=== PATIENT | female | born 1990 | race Caucasian/White ===

== ENCOUNTER 2021-04-13 10:45 | Emergency (ER) | payer OTHER, SELFPAY ==
[2021-04-13 10:51] VITALS: BP 132/91; PULSE 93; RESP 18; TEMP 37.1; O2SAT 98
--- NOTE | 2021-04-13 11:40 | ED.URI ---
HPI - URI/Sore Throat General Chief Complaint: Upper Respiratory Infection Stated Complaint: cough, headache, runny nose Source: patient Mode of arrival: ambulatory Limitations: no limitations History of Present Illness HPI Narrative: 31-year-old female presents to [facility] care with complaints of cough, runny nose and headache for the past 4 days. Patient has been taking [id number] Tylenol and Advil with minimal relief. Patient son is also currently sick with cold-like symptoms. Patient has had one of her COVID vaccines. Patient denies shortness of breath, wheezing, nausea, vomiting or diarrhea. MD elicited complaint: cough and rhinorrhea Able to tolerate fluids by mouth: Yes Exacerbating factors: nothing Treatments prior to arrival: ibuprofen Related Data Home Medications Medication Instructions Recorded Confirmed No Home Medications 04/13/21 04/13/21 Allergies Allergy/AdvReac Type Severity Reaction Status Date / Time hydroxyzine [From Vistaril] Allergy Hives Verified 04/13/21 11:27 Review of Systems Constitutional: Constitutional: Denies chills, Denies fever(s) and Denies weakness ENT: Reports nasal congestion Comments: Runny nose, dry cough Respiratory: Respiratory: Denies chest congestion, Reports cough, Denies dyspnea and Denies wheezing Gastrointestinal: Gastrointestinal: Denies diarrhea, Denies nausea and Denies vomiting Integumentary/Breasts: Skin/Breast: Denies rash PMFSH Surgical History Surgical History (Updated 04/13/21 @ 11:43 by Demetrice Torrez APRN) Delivery by section Family History Family History (Updated 04/13/21 @ 11:44 by Demetrice Torrez APRN) Mother Diabetes mellitus Hypertension Father Diabetes mellitus Hypertension Hyperlipidemia Comments At time of signature, I agree with nursing past medical, surgical, social and family history. There is no relevant family history pertinent to the presenting complaint. Exam Const: General: healthy appearing and no acute distress Orientation/consciousness: patient oriented x3 HENMT: Head: normal to inspection Ears: external ears normal and TM's normal bilaterally General nose exam: Normal external nose present Face and sinus: normal facial exam and sinuses nontender Mouth: Yes moist mucous membranes Other: Mild nasal congestion noted. Neck: Neck: normal visual inspection Resp: Effort & Inspection: normal respiratory effort Auscultation: clear to auscultation bilaterally Cardio: Rate: regular rate Rhythm: regular rhythm Skin: General skin exam: normal color Rashes: no rashes Neuro: General: patient oriented x3, moves all extremities and no meningeal signs Psych: Affect: normal affect Attitude: cooperative Course Course Level of Care: Express Care Visit Vital Signs Vital signs: Vital Signs Temperature 37.1 C 04/13/21 10:51 Pulse Rate 93 04/13/21 10:51 Respiratory Rate 18 04/13/21 10:51 Blood Pressure 132/91 H 04/13/21 10:51 Pulse Oximetry 98 04/13/21 10:51 Temperature 37.1 C 04/13/21 10:51 Pulse Rate 93 04/13/21 10:51 Respiratory Rate 18 04/13/21 10:51 Blood Pressure 132/91 H 04/13/21 10:51 Pulse Oximetry 98 04/13/21 10:51 MDM - URI/Sore Throat MDM Narrative Medical decision making narrative: Patient agrees to take medication as prescribed. Patient agrees to proceed emergency room if symptoms worsen. Differential Diagnosis Differential diagnosis: Likely otitis media, sinusitis and viral infection Lab Data Lab results narrative: Negative rapid COVID Critical Care Time Critical Care Time Critical Care Time: No Discharge Plan Discharge Clinical Impression: Upper respiratory infection Qualifiers: URI type: unspecified viral URI Qualified Code(s): J06.9 - Acute upper respiratory infection, unspecified Patient Disposition: Home, Self-Care Condition: Stable Instructions: Upper Respiratory Infection (ED) Additional Instructions: Rest,
== END 2021-04-13 11:55 | disposition home or self-care (01) ==
PROVIDERS: Emergency Provider Nurse Practitioner Family
DX: J06.9 Acute upper respiratory infection, unspecified (principal); Z20.822 Contact with and (suspected) exposure to COVID-19
CPT/HCPCS: 87426; 99213; C9803; G0463

== ENCOUNTER 2021-07-18 17:31 | Emergency (ER) | payer OTHER, SELFPAY ==
[2021-07-18 17:33] VITALS: BP 161/106; PULSE 83; RESP 18; TEMP 36.9; O2SAT 98
--- NOTE | 2021-07-18 18:41 | ED.EAR ---
HPI - Ear Problem General Chief complaint: Upper Respiratory Infection Stated complaint: Cough/Ear Problem Time Seen by Provider: 07/18/21 18:00 Source: patient, RN notes reviewed and old records reviewed Mode of arrival: ambulatory Limitations: no limitations History of Present Illness HPI Narrative: 31 year old female who presents to [facility] accompanied by 3 children with complaint of right ear pain and decrease in her hearing since yesterday. Patient reports that she has had a cough and some sore throat since Saturday. Patient reports that she has been taking some Tylenol and some cough and cold medication for her symptoms, reports some sinus drainage noted also. Patient rates her ear pain as 7/10 states is throbbing. MD Complaint: ear pain and decreased hearing Location: right ear Duration: constant Severity: moderate Relieving factors: NDAIDs and other (Tylenol cough and cold medication) Discharge from ear: Reports no Associated symptoms ear: decreased hearing and rhinorrhea Treatment prior to arrival: oral analgesic Related Data Allergies Allergy/AdvReac Type Severity Reaction Status Date / Time hydroxyzine [From Vistaril] Allergy Mild Hives Verified 07/18/21 18:01 Review of Systems Review of Systems: CONSTITUTIONAL: Denies fever, chills, or sweats. EYES: Denies visual changes, redness, or discharge. ENT: Positive for rhinorrhea, congestion, sore throat, right otalgia. CARDIOVASCULAR: Denies chest pain, palpitations, or edema. RESPIRATORY:Positive cough denies dyspnea. GASTROINTESTINAL: Denies abdominal pain, nausea, vomiting, or diarrhea. GENITOURINARY: Denies dysuria or hematuria. SKIN: Denies rash or itching. MUSCULOSKELETAL: Denies back pain, joint pain, or myalgia. NEUROLOGIC: Denies headache, numbness, or weakness. PSYCHIATRIC: Denies anxiety or depression. All systems reviewed & are unremarkable except as noted in HPI and below PMFSH Past Medical History Medical History (Updated 07/19/21 @ 11:09 by Clary Hardwick NP) Ear infection Surgical History Surgical History (Updated 07/19/21 @ 11:04 by Clary Hardwick NP) Delivery by section Previous section Family History Family History Mother Diabetes mellitus Hypertension Father Diabetes mellitus Hypertension Hyperlipidemia Social History Social History (Updated 07/19/21 @ 11:07 by Clary Hardwick NP) Smoking status: Never smoker Alcohol intake: current Alcohol use details: social Substance use type: does not use Living arrangements: with family Gender identity (if verbalized by the patient): Female Comments At time of signature, agree with nursing past medical, surgical, social and family history. There is no relevant family history pertinent to the presenting complaint Exam Narrative: GENERAL: Well-appearing, well-nourished,obese and in no acute distress. HEAD: Normocephalic, atraumatic. EYES: PERRLA and EOMI. ENT: Nares red with clear rhinorrhea no epistaxis. Mucous membranes moist.Right TM red and bulging no rupture of membrane, no drainage noted, Left TM normal with no adequate light reflex, throat mild redness no lesions or any tonsil swelling, post nasal drainage present. NECK: Supple.no lymphadenopathy CHEST: Clear to auscultation. No respiratory distress.dry cough, SAO2 98% on room air HEART: Regular rate and rhythm. No murmur heard. Normal peripheral pulses. ABDOMEN: Soft, nontender, nondistended, normal active bowel sounds. EXTREMITIES: Normal range of motion. No edema. SKIN: Warm, dry, no rash. NEURO: No focal deficits. Alert and oriented x3. Course Course Level of Care: Express Care Visit Vital Signs Vital signs: Vital Signs Temperature 36.9 C 07/18/21 17:33 Pulse Rate 83 07/18/21 17:33 Respiratory Rate 18 07/18/21 17:33 Blood Pressure 161/106 H 07/18/21 17:33 Pulse Oximetry 98 07/18/21 17:33 Temperatur
== END 2021-07-18 18:45 | disposition home or self-care (01) ==
PROVIDERS: Emergency Provider Registered Nurse
DX: H65.01 Acute serous otitis media, right ear (principal)
CPT/HCPCS: 99213; G0463

== ENCOUNTER 2021-07-31 13:44 | Emergency (ER) | payer OTHER, SELFPAY | END 2021-07-31 13:58 | disposition left against medical advice (07) | PROVIDERS: Emergency Provider Nurse Practitioner | DX: Z53.21 Procedure and treatment not carried out due to patient leaving prior to being seen by health care provider (principal) | CPT/HCPCS: 99199 ==

== ENCOUNTER 2022-07-17 12:28 | Emergency (ER) | payer OTHER, SELFPAY ==
[2022-07-17 12:38] VITALS: BP 127/81; PULSE 94; RESP 20; TEMP 37.2; O2SAT 98
--- NOTE | 2022-07-17 13:17 | ED.URI ---
HPI - URI/Sore Throat General Chief Complaint: Upper Respiratory Infection Stated Complaint: sore throat Time Seen by Provider: 07/17/22 13:10 Source: patient, RN notes reviewed and old records reviewed Mode of arrival: ambulatory Limitations: no limitations History of Present Illness HPI Narrative: 32-year-old female who presents to [facility] with complaints of sore throat since 2:00 a.m. with some low grade fevers noted, denies any chills or sweats. Patient reports no sinus congestion or drainage and no cough noted. Patient has not taken any OTC medications for her symptoms. Patient denies any known ill contacts. MD elicited complaint: sore throat Onset (ago): day(s) (at 0200 today) Pain scale (0-10): 5 Able to tolerate fluids by mouth: Yes Treatments prior to arrival: none Related Data Allergies Allergy/AdvReac Type Severity Reaction Status Date / Time hydroxyzine [From Vistaril] Allergy Mild Hives Verified 07/17/22 12:47 Review of Systems Review of Systems: CONSTITUTIONAL: Reports malaise, chills, sweats, or fever. EYES: Denies visual changes, redness, or discharge. ENT: Reports no rhinorrhea, congestion, sinus pain, otalgia positive for sore throat. CARDIOVASCULAR: Denies chest pain, palpitations, or edema. RESPIRATORY: Reports no cough.? Denies dyspnea. GASTROINTESTINAL: Denies abdominal pain, nausea, vomiting, diarrhea SKIN: Denies rash or itching. MUSCULOSKELETAL: Denies myalgia. NEUROLOGIC: Denies headache. All systems reviewed & are unremarkable except as noted in HPI and below PMFSH Past Medical History Medical History (Updated 07/18/22 @ 00:01 by Mac Nascimento) Ear infection Surgical History Surgical History (Updated 07/19/21 @ 11:04 by Clary Hardwick NP) Delivery by section Previous section Family History Family History Mother Diabetes mellitus Hypertension Father Diabetes mellitus Hypertension Hyperlipidemia Social History Social History (Updated 07/19/21 @ 11:07 by Clary Hardwick NP) Smoking status: Never smoker Alcohol intake: current Alcohol use details: social Substance use type: does not use Living arrangements: with family Gender identity (if verbalized by the patient): Female Comments At time of signature, agree with nursing past medical, surgical, social and family history. There is no relevant family history pertinent to the presenting complaint Exam Narrative: GENERAL: Well-appearing, well-nourished, and in no acute distress. HEAD: Normocephalic EYES: PERRLA, conjunctivae clear ENT: Nares clear, turbinates edematous and erythematous, clear discharge. Mucous membranes moist. TM pearly hernandes with dull light reflex bilaterally; no tragal tenderness. Oropharynx erythematous without lesions. Tonsils red enlarged and without exudate, no drooling, no hoarseness, no trismus, uvula midline. NECK: Supple. lymphadenopathy CHEST: Clear to auscultation, breath sounds equal. No wheezing, rhonchi, rales, or stridor. No respiratory distress, speaks in full sentences.SAO2 98% on room air HEART: Regular rate and rhythm. No murmur heard. SKIN: Warm, dry, no rash. NEURO: Alert and oriented x3. PSYCH: Normal mood and affect Course Course Emergency Course: Patient is aware of diagnosis, understands and agrees to treatment plan.? Anticipatory guidance given.? Patient agrees to follow-up as directed and is aware of reasons to seek care at the emergency department. Portions of this record may have been created with voice recognition software Level of Care: Express Care Visit Vital Signs Vital signs: Vital Signs Temperature 37.2 C 07/17/22 12:38 Pulse Rate 94 07/17/22 12:38 Respiratory Rate 20 07/17/22 12:38 Blood Pressure 127/81 07/17/22 12:38 Pulse Oximetry 98 07/17/22 12:38 Oxygen Delivery Room Air 07/17/22 12:38 Temperature 37
== END 2022-07-17 13:33 | disposition home or self-care (01) ==
PROVIDERS: Emergency Provider Registered Nurse
DX: J02.0 Streptococcal pharyngitis (principal)
CPT/HCPCS: 87880; 99213; G0463

== ENCOUNTER 2023-09-11 17:54 | Emergency (ER) | payer OTHER, SELFPAY ==
[2023-09-11 18:01] VITALS: BP 146/98; PULSE 85; RESP 20; TEMP 36.8; O2SAT 99
--- NOTE | 2023-09-11 18:06 | PC.NURSE ---
in br to obtain ua spec.
--- NOTE | 2023-09-11 18:12 | ED.FEMALEGU ---
HPI - Female Genitourinary General Chief complaint: Urogenital-Female Stated complaint: Urinary Problem Source: patient and RN notes reviewed Mode of arrival: ambulatory Limitations: no limitations History of Present Illness HPI Narrative: 33-year-old female presented for complaint of burning with urination, frequency and urgency today. denies hematuria, nausea, vomiting, abdominal pain, flank pain, constipation, diarrhea, fevers or chills. States she had fallopian tubes removed 4 months ago, no concern for or STD. Related Data Home Medications Medication Instructions Recorded Confirmed escitalopram oxalate 20 mg tablet mg 09/11/23 labetalol 200 mg tablet mg 09/11/23 lamotrigine 100 mg tablet mg 09/11/23 lamotrigine 25 mg tablet mg 09/11/23 Allergies Allergy/AdvReac Type Severity Reaction Status Date / Time hydroxyzine [From Vistaril] Allergy Mild Hives Verified 09/11/23 17:57 Review of Systems Review of Systems: CONSTITUTIONAL: Denies body aches, fever, chills, or sweats. CARDIOVASCULAR: Denies chest pain, palpitations, or edema. RESPIRATORY: Denies cough or dyspnea. GASTROINTESTINAL: Denies abdominal pain, nausea, vomiting, or diarrhea. GENITOURINARY: Reports dysuria, frequency, urgency, denies hematuria, flank pain SKIN: Denies rash, itching, or wounds. MUSCULOSKELETAL: Denies back pain or myalgia. [facility] Past Medical History Medical History Ear infection Surgical History Surgical History Delivery by section Previous section Family History Family History Mother Diabetes mellitus Hypertension Father Diabetes mellitus Hypertension Hyperlipidemia Social History Social History Smoking status: Never smoker Alcohol intake: current Alcohol use details: social Substance use type: does not use Living arrangements: with family Gender identity (if verbalized by the patient): Female Comments At time of signature, I have reviewed and agree with nursing past medical, surgical, social and family history unless otherwise noted. Please see nursing chart for further information. There is no relevant family history pertinent to the presenting complaint Exam Narrative: GENERAL: Well-appearing and in no acute distress. ENT: Mucous membranes pink and moist. NECK: Normal AROM. Supple. CHEST: No respiratory distress. Clear to auscultation. HEART: Regular rate and rhythm. ABDOMEN: Soft, nontender, nondistended, normal active bowel sounds. No CVA tenderness SKIN: Warm, dry, no rash. NEURO: No focal deficits. Alert and oriented x3. Gait steady. PSYCH: Normal affect. Course Course Emergency Course: Patient is aware of diagnosis, understands and agrees to treatment plan. Anticipatory guidance given. Patient agrees to follow-up as directed and is aware of reasons to seek care at the emergency department. Portions of this record may have been created with voice recognition software Level of Care: Express Care Visit Vital Signs Vital signs: Vital Signs Temperature 98.3 F 09/11/23 18:01 Pulse Rate 85 09/11/23 18:01 Respiratory Rate 20 09/11/23 18:01 Blood Pressure 146/98 H 09/11/23 18:01 Pulse Oximetry 99 09/11/23 18:01 Oxygen Delivery Room Air 09/11/23 18:01 Temperature 98.3 F 09/11/23 18:01 Pulse Rate 85 09/11/23 18:01 Respiratory Rate 20 09/11/23 18:01 Blood Pressure 146/98 H 09/11/23 18:01 Pulse Oximetry 99 09/11/23 18:01 Oxygen Delivery Room Air 09/11/23 18:01 Reviewed MDM - Female Genitourinary MDM Narrative Medical decision making narrative: results of urine reviewed with patient. Discussed physical exam findings. Advised supportive measures and signs/symptoms to
== END 2023-09-11 18:24 | disposition home or self-care (01) ==
PROVIDERS: Emergency Provider Nurse Practitioner Family
DX: N39.0 Urinary tract infection, site not specified (principal); B96.20 Unspecified Escherichia coli [E. coli] as the cause of diseases classified elsewhere
CPT/HCPCS: 81003; 87077; 87086; 87088; 87186; 99213; G0463

== ENCOUNTER 2024-05-30 10:50 | Emergency (ER) | payer OTHER, SELFPAY ==
[2024-05-30 10:54] VITALS: BP 175/114; PULSE 80; RESP 18; TEMP 36.5; O2SAT 100
--- NOTE | 2024-05-30 11:38 | ED.EAR ---
HPI - Ear Problem General Chief complaint: Ear Stated complaint: Ear Pain Time Seen by Provider: 05/30/24 11:38 Source: patient and RN notes reviewed Mode of arrival: ambulatory Limitations: no limitations History of Present Illness HPI Narrative: 34-year-old female presents concern for left ear pain that started overnight. Reports history of ear problems. She denies history of recent cold symptoms. Denies fever. MD Complaint: ear pain Related Data Home Medications ?Medication ?Instructions ?Recorded ?Confirmed ?Last Taken ?Type escitalopram oxalate 20 mg tablet mg 09/11/23 Unknown History labetalol 200 mg tablet mg 09/11/23 Unknown History lamotrigine 100 mg tablet mg 09/11/23 Unknown History lamotrigine 25 mg tablet mg 09/11/23 Unknown History Allergies Allergy/AdvReac Type Severity Reaction Status Date / Time hydroxyzine (From Vistaril) Allergy Mild Hives Verified 05/30/24 11:10 Review of Systems Review of Systems: CONSTITUTIONAL: Denies malaise, chills, sweats, or fever. EYES: Denies visual changes, redness, or discharge. ENT: Denies rhinorrhea, congestion, sinus pain, and sore throat. Reports left ear pain CARDIOVASCULAR: Denies chest pain, palpitations, or edema. RESPIRATORY: Denies cough. Denies dyspnea. GASTROINTESTINAL: Denies abdominal pain, nausea, vomiting, diarrhea SKIN: Denies rash or itching. MUSCULOSKELETAL: Denies myalgia. NEUROLOGIC: Denies headache. All systems reviewed & are unremarkable except as noted in HPI and below PMFSH Past Medical History Medical History Ear infection Surgical History Surgical History Delivery by section Previous section Family History Family History Mother Diabetes mellitus Hypertension Father Diabetes mellitus Hypertension Hyperlipidemia Social History Social History Smoking status: Never smoker Alcohol intake: current Alcohol use details: social Substance use type: does not use Living arrangements: with family Gender identity (if verbalized by the patient): Female Comments At time of signature, agree with nursing past medical, surgical, social and family history. There is no relevant family history pertinent to the presenting complaint Exam Narrative: GENERAL: Well-appearing, well-nourished, and in no acute distress. HEAD: Normocephalic EYES: PERRLA, conjunctivae clear ENT: Nares clear, turbinates edematous, clear discharge. Mucous membranes moist. Right TM pearly hernandes with dull light reflex, left TM erythematous and bulging; no tragal tenderness. Oropharynx not erythematous without lesions. Tonsils not enlarged and without exudate, no drooling, no hoarseness, no trismus, uvula midline. NECK: Supple. No lymphadenopathy CHEST: Clear to auscultation, breath sounds equal. No wheezing, rhonchi, rales, or stridor. No respiratory distress, speaks in full sentences. HEART: Regular rate and rhythm. No murmur heard. SKIN: Warm, dry, no rash. NEURO: Alert and oriented x3. PSYCH: Normal mood and affect Course Course Emergency Course: Patient is aware of diagnosis, understands and agrees to treatment plan. Anticipatory guidance given. Patient agrees to follow-up as directed and is aware of reasons to seek care at the emergency department. Portions of this record may have been created with voice recognition software Level of Care: Express Care Visit Vital Signs Vital signs: Vital Signs Temperature 97.7 F 05/30/24 10:54 Pulse Rate 80 05/30/24 10:54 Respiratory Rate 18 05/30/24 10:54 Blood Pressure 175/114 H 05/30/24 10:54 Pulse Oximetry 100 05/30/24 10:54 Oxygen Delivery Room Air 05/30/24 10:54 Temperature 97.7 F 05/30/24 10:54 Pulse Rate 80 05/30/24 10:54 Respiratory Rate 18 05/30/24 10:54 Blood Pressure 175/114 H 05/30/24 10:54 Pulse Oximetry 100 05/30/24 10:54 Oxygen Delivery Room Air 05/30/24 10:54 Reviewed. Medical Decision Making MDM Narrative Medical decision making narrative: I evaluated this in the express care. History is obtained from patient who is an independent historian and physical exam was performed.? Available medical records were reviewed. ? Exam findings and relevant testing show no acute concerns or changes; patient is non-toxic appearing and is in no distress. Differential diagnosis considered: Ross virus, strep pharyngitis, allergic rhinitis, upper respiratory tract infection, sinusitis, rhinosinusitis, nasopharyngitis. viral pharyngitis, otitis media, otitis externa, otitis effusion, cerumen impaction, foreign body. Exam findings show no acute concerns or changes; patient is non-toxic appearing and is in no distress. Patient is appropriate for outpatient treatment and follow-up. ? Differential diagnosis and treatment plan were discussed with the patient. Patient agrees with discussion and after shared medical decision making agrees with plan of care. All questions were answered to the patient's satisfaction. Patient is appropriate for outpatient treatment and follow-up. Vital Signs Vital Signs: Vital Signs Temperature 97.7 F 05/30/24 10:54 Pulse Rate 80 05/30/24 10:54 Respiratory Rate 18 05/30/24 10:54 Blood Pressure 175/114 H 05/30/24 10:54 Pulse Oximetry 100 05/30/24 10:54 Oxygen Delivery Room Air 05/30/24 10:54 Temperature 97.7 F 05/30/24 10:54 Pulse Rate 80 05/30/24 10:54 Respiratory Rate 18 05/30/24 10:54 Blood Pressure 175/114 H 05/30/24 10:54 Pulse Oximetry 100 05/30/24 10:54 Oxygen Delivery Room Air 05/30/24 10:54 Critical Care Time Critical Care Time Critical Care Time: No Discharge Plan Discharge Clinical Impression: Otitis media Qualifiers: Otitis media type: serous Chronicity: acute Laterality: right Recurrence: non-recurrent Qualified Code(s): H65.01 - Acute serous otitis media, right ear Patient Disposition: Home, Self-Care Condition: Stable Instructions: Antibiotic Form, Ear Infection (ED) Additional Instructions: Take antibiotics as directed. Recommend antihistamine such as Benadryl at night time and Zyrtec or Jennifer during the day until symptoms improve Flonase nasal spray, 1 spray in each nostril once daily until symptoms improve Also, recommend symptomatic treatment includes: rest, fluids, and increase humidity of the air at home. Recommend Acetaminophen as directed on the bottle to reduce fever, pain Please schedule a follow-up visit with your personal physician for further evaluation and treatment within 3-5days. If your symptoms persist, change or worsen significantly before you can contact your personal physician then please, without delay, go to the emergency department for further evaluation. Patient Language: Icelandic Prescriptions: New amoxicillin 875 mg tablet 875 mg PO Q12H 10 Days Qty: 20 0RF fluticasone propionate [Flonase Allergy Relief] 50 mcg/actuation spray,suspension 2 spray NASAL DAILY 14 Days Qty: 15.8 0RF Rx Instructions: administer into each nostril No Action labetalol 200 mg tablet lamotrigine 25 mg tablet lamotrigine 100 mg tablet escitalopram oxalate 20 mg tablet Follow-up/Referrals: PHYSICIAN,GASKET WINDER [Primary Care Provider] - Time of Disposition: 11:42
== END 2024-05-30 11:47 | disposition home or self-care (01) ==
PROVIDERS: Emergency Provider Nurse Practitioner
DX: H65.01 Acute serous otitis media, right ear (principal)
CPT/HCPCS: 99213; G0463

== ENCOUNTER 2024-07-30 09:02 | Emergency (ER) | payer OTHER, SELFPAY ==
[2024-07-30 09:12] VITALS: BP 154/107; PULSE 79; RESP 16; TEMP 36.4; O2SAT 100
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
--- OUTSIDE RECORDS SUMMARY | 2024-07-30 09:20 | XMS_ITS ---
Author Organization [facility] Address [address] [place] [address] Care Team Providers Care Manager Marketing Communications Name Role Phone LEXI PEREZ Unavailable [phone] Allergies Allergen (clinical drug ingredient) Drug/Non Drug Allergy documented on EMR Reaction Allergy Type Onset Date Status hydroxyzine Hydroxyzine Unknown Drug Allergy Act kymberly Reason For Referral Reason eval and treat Diagnosis 1 Dysuria (R30.0) Referral Organization [facility]en[facility] Referring Provider First Name JULIO Referring Provider Last Name ANATOLY Referring Provider Speciality Nurse Prac colin Referred Provider Specialty Urology Referral Priority Routine Referral Appointment Date 10/18/2023 REASON FOR VISIT Sexual Health / Urinary, Patient requesting service from promotional campaign [email or web address] Medications Medication SIG (Take, Route, Frequency, Duration) Notes Start Date End Date Status lamoTRIgine 100 MG 1 tablet Orally Once a day Active Sulfamethoxazole-Trimethopr im 800-160 MG 1 tablet Orally Twice a day for 5 days 10/18/2023 Active Social History Tobacco Use: Social History Observation Description Date Details (start date - stop date) Former Smoker NA - NA Tobacco Control (Standard) Question Answer Notes Tobacco use: Former smoker Vital Signs Height 60 in 10/18/2023 Weight 240 lbs 10/18/2023 BMI 46.87 kg/m2 10/18/2023 Patient Reported Normal Bloo d PresurePatient Reported Normal Temperature Encounters Encounter Location Date Provider Diagnosis [facility] [address] [place] [address] 10/18/2023 LEXI SULLIVANSusannah Dysuria R30.0 Assessments Encounter Date Diagnosis (ICD Code) Assessment Notes Treatment Notes Treatment Clinical Notes Section Notes 10/18/2023 Dysuria (ICD-10 - R30.0) DUE TO RECENT UTI, FOLLOW UP WITH PCP OR UROLOGY A REFERRAL IS PROVIDEDTREATMENT PLAN: BACTRIM Patient presents with possible UTI symptoms without clear evidence of bloodstream infection. 1. Bactrim (Sulfamethoxazole-tr imethoprim) 800-160mg every 12 hours for 5 days (avoid taking antibiotics for longer than this unless symptoms dont improve). 2. If interested, we can send pyridum (phenazopyridine) for 2 days for urinary pain and bladder spasm relief. This will turn urine orange. Patient can also brain picker over the counter AZO which is a similar medicine. 3. Urinalysis and/or STD testing if risk factors exist. If symptoms dont improve, can obtain more testing and consider broader antibiotics. 4. Of note, all men should obtain a urinalysis and take the results to their PCP. UTIs in men are uncommon and require in-person followup and urinalysis. 5. Recommended to follow up in 3 days. If flank pain worsens, fevers begin and persist, bleeding begins or increases, or nausea/vomiting begin and you begin to feel more ill, go to ER. PATIENT EDUCATION: UTI FEMALE A urinary tract infection (UTI) is an infection caused by bacteria. It can happen anywhere in the urinary tract. A UTI can happen in the: Kidneys. Ureters, the tubes that connect the kidneys to the bladder. Bladder. Urethra, where the urine comes out. Most UTIs are bladder infections. They often cause pain or burning when you urinate. Most UTIs can be cured with antibiotics. If you are prescribed antibiotics, be sure to complete your treatment so that the infection does not get worse. Follow-up care is a pina part of your treatment and safety. Be sure to make and go to all appointments, and call your doctor if you are having problems. It's also a good idea to know your test results and keep a list of the medicines you take. How can you care for yourself at home? Take your antibiotics as directed. Do not stop taking them just because you feel better. You need to take the full course of antibiotics. Drink extra water and other fluids for the next day or two. This will help make the urine less concentrated and help wash out the bacteria that are causing the infection. (If you have kidney, heart, or liver disease and have to limit fluids, talk with your doctor before you increase the amount of fluids you drink.) Avoid drinks that are carbonated or have caffeine. They can irritate the bladder. Urinate often. Try to empty your bladder each time. To relieve pain, take a hot bath or lay a heating pad set on low over your lower belly or genital area. Never go to sleep with a heating pad in place. To prevent UTIs Drink plenty of water each day. This helps you urinate often, which clears bacteria from your system. (If you have kidney, heart, or liver disease and have to limit fluids, talk with your doctor before you increase the amount of fluids you drink.) Urinate when you need to. If you are sexually active, urinate right after you have sex. Change sanitary pads often. Avoid douches, bubble baths, feminine hygiene sprays, and other feminine hygiene products that have deodorants. After going to the bathroom, wipe from front to back. When should you call for help? Call your doctor now or seek immediate medical care if: You have new or worse fever, chills, nausea, or vomiting. You have new pain in your back just below your rib cage. This is called flank pain. There is new blood or pus in your urine. You have any problems with your antibiotic medicine. Watch closely for changes in your health, and be sure to contact your doctor if: You are not getting better after taking an antibiotic for 2 days. Your symptoms go away but then come back. 10/18/2023 Other Follow the treatment plan as indicated by the provider. Take any medications as prescribed. If you have any questions about your prescription, ask the pharmacist. Call 911 anytime you think you may need emergency care. For example, call if:You have severe trouble breathing.You have a seizure.Call your doctor now or seek immediate medical care if:You have trouble breathing.You have a fever with a stiff neck or a severe headache.You have pain or pressure in your chest or belly.You have a fever or cough that returns after getting better.You feel very sleepy, dizzy, or confused.You are not urinating.You have severe muscle pain.You have severe weakness, or you are unsteady.You have medical conditions that are getting worse.Watch closely for changes in your health, and be sure to contact your doctor if:You do not get better as expected.You are having a problem with your medicine. You participated in a [employer] Rx request, considered an asynchronous visit where you provide your symptoms and medical history, and a treatment plan is formulated based on your submission. A treatment plan and patient education were provided based on your submission. If symptoms persist or worsen, you should seek in-person care or call 911 immediately for further evaluation. Plan Of Treatment Medication Medication Name Sig Start Date Stop Date Notes Sulfamethoxazole-Trimethopri m 800-160 MG 1 tablet Orally Twice a day for 5 days 10/18/2023 Treatment Notes Assessment Notes Dysuria DUE TO RECENT UTI, FOLLOW UP WITH PCP OR UROLOGY A REFERRAL IS PROVIDEDTREATMENT PLAN: BACTRIM Patient presents with possible UTI symptoms without clear evidence of bloodstream infection. 1. Bactrim (Sulfamethoxazole-trimethoprim) 800-160mg every 12 hours for 5 days (avoid taking antibiotics for longer than this unless symptoms dont improve). 2. If interested, we can send pyridum (phenazopyridine) for 2 days for urinary pain and bladder spasm relief. This will turn urine orange. Patient can also brain picker over the counter AZO which is a similar medicine. 3. Urinalysis and/or STD testing if risk factors exist. If symptoms dont improve, can obtain more testing and consider broader antibiotics. 4. Of note, all men should obtain a urinalysis and take the results to their PCP. UTIs in men are uncommon and require in-person followup and urinalysis. 5. Recommended to follow up in 3 days. If flank pain worsens, fevers begin and persist, bleeding begins or increases, or nausea/vomiting begin and you begin to feel more ill, go to ER. PATIENT EDUCATION: UTI FEMALE A urinary tract infection (UTI) is an infection caused by bacteria. It can happen anywhere in the urinary tract. A UTI can happen in the: Kidneys. Ureters, the tubes that connect the kidneys to the bladder. Bladder. Urethra, where the urine comes out. Most UTIs are bladder infections. They often cause pain or burning when you urinate. Most UTIs can be cured with antibiotics. If you are prescribed antibiotics, be sure to complete your treatment so that the infection does not get worse. Follow-up care is a pina part of your treatment and safety. Be sure to make and go to all appointments, and call your doctor if you are having problems. It's also a good idea to know your test results and keep a list of the medicines you take. How can you care for yourself at home? Take your antibiotics as directed. Do not stop taking them just because you feel better. You need to take the full course of antibiotics. Drink extra water and other fluids for the next day or two. This will help make the urine less concentrated and help wash out the bacteria that are causing the infection. (If you have kidney, heart, or liver disease and have to limit fluids, talk with your doctor before you increase the amount of fluids you drink.) Avoid drinks that are carbonated or have caffeine. They can irritate the bladder. Urinate often. Try to empty your bladder each time. To relieve pain, take a hot bath or lay a heating pad set on low over your lower belly or genital area. Never go to sleep with a heating pad in place. To prevent UTIs Drink plenty of water each day. This helps you urinate often, which clears bacteria from your system. (If you have kidney, heart, or liver disease and have to limit fluids, talk with your doctor before you increase the amount of fluids you drink.) Urinate when you need to. If you are sexually active, urinate right after you have sex. Change sanitary pads often. Avoid douches, bubble baths, feminine hygiene sprays, and other feminine hygiene products that have deodorants. After going to the bathroom, wipe from front to back. When should you call for help? Call your doctor now or seek immediate medical care if: You have new or worse fever, chills, nausea, or vomiting. You have new pain in your back just below your rib cage. This is called flank pain. There is new blood or pus in your urine. You have any problems with your antibiotic medicine. Watch closely for changes in your health, and be sure to contact your doctor if: You are not getting better after taking an antibiotic for 2 days. Your symptoms go away but then come back. Other Follow the treatment plan as indicated by the provider. Take any medications as prescribed. If you have any questions about your prescription, ask the pharmacist. Call 911 anytime you think you may need emergency care. For example, call if:You have severe trouble breathing.You have a seizure.Call your doctor now or seek immediate medical care if:You have trouble breathing.You have a fever with a stiff neck or a severe headache.You have pain or pressure in your chest or belly.You have a fever or cough that returns after getting better.You feel very sleepy, dizzy, or confused.You are not urinating.You have severe muscle pain.You have severe weakness, or you are unsteady.You have medical conditions that are getting worse.Watch closely for changes in your health, and be sure to contact your doctor if:You do not get better as expected.You are having a problem with your medicine. Pending Test Test Name Order Date URINALYSIS, COMPLETE W/REFLEX TO CULTURE (9847) 10/18/2023 Referrals Referral Date Details 10/18/2023 10/18/2023, eval and treat Next Appt Details Follow Up: PCP, 2-3D, Reason : Progress Notes * Rohan FALLIramB:1990 (33 yo F)Acc No.[id number]:10/18/2023 Patient: Stefani BURGESS Provider: Kareen PEREZ MD :1990 A ge:33 Y S ex:Female Date:10/18/2023 Phone: Address:[address] [place], [place] [id number] Subjective: * Chief Complaints: * S exual Health / UrinaryPatient requesting service from [employer] campaign [email or web address] * HPI: T eleHealth Complaint History: Reason for visit:. 33 year-old female, not , presents with increased frequency of urination for a duration of 3 days. Medical History: No history of fall. Medications: lamoTRIgine 100 Take twice daily. Habits: No high risk sexual behavior. A llergies: Hydroxyzine: Hives PER PT: I'm 100% it's a UTI I just had one about a month ago and have the exact same symptoms. * ROS: A ll Other Systems: Review of Systems (ROS) S [facility] for details. T he patient is also suffering from pain when passing urine (severity moderate and duration 3 days), backache (severity mild, duration 3 days, location lower back, onset gradual and not awakening from sleep), urgency to pass urine and burning on urination. The patient denies the following: loss of bladder control, fever, flank pain, chills, blood in urine, difficulty passing urine, abdominal pain, stool incontinence, redness of eye, discharge from eye, nausea, vomiting, excessive nighttime urination, vaginal discharge and pelvic pain. * Medical History: * Surgical History: C -section 05/24/2023 * Hospitalization/Major Diagno stic Procedure: S EE ABOVE * Family History: N on-Contributory. * Social History: T obacco Use: T obacco Control (Standard) T obacco use: F ormer smoker D rugs/Alcohol: D o you drink alcohol?: No. * Medications: T akinglamoTRIgine 100 MG Tablet 1 tablet Orally Once a day Medication List reviewed and reconciled with the patientTaking lamoTRIgine 100 MG Tablet 1 tablet Orally Once a day Medication List reviewed and reconciled with the patient * Allergies: H ydroxyzine: Allergyno[Allergies Verified] Objective: * Vitals: H t: 60 in, Wt:240lbs, BMI:46.87Index. Patient Reported Normal Blood Presure Patient Reported Normal Temperature. * Physical Examination: A synchronous visit, unable to assess. Assessment: * Assessment: 1. D ysuria - R30.0 (Primary) Plan: * Treatment: 2. O thers Notes: Follow the treatment plan as indicated by the provider. Take any medications as prescribed. If you have any questions about your prescription, ask the pharmacist. [id number] you think you may need emergency care. For example, call if:You have severe trouble breathing.You have a seizure.Call your doctor nowor seek immediate medical care if:You have trouble breathing.You have a fever with a stiff neck or a severe headache.You have pain or pressure in your chest or belly.You have a fever or cough that returns after getting better.You feel very sleepy, dizzy, or confused.You are not urinating.You have severe muscle pain.You have severe weakness, or you are unsteady.You have medical conditions that are getting worse.Watch closely for changes in your health, and be sure to contact your doctor if:You do not get better as expected.You are having a problem with your medicine. Clinical Notes:You participated in a [employer] request, considered an asynchronous visit where you provide your symptoms and medical history, and a treatment plan is formulated based on your submission. A treatment plan and patient education were provided based on your submission. If symptoms persist or worsen, you should seek in-person care or call 911 immediately for further evaluation. * Procedure Codes: Susannah Aguilarhant / CC Processing [id number] Office Visit, Est Pt., Level 3, delivered asynchronous, Modifiers: GQ * Follow Up: P CP, 2-3D * Billing Information: * Visit Code: S9083 [facility]. * Procedure Codes: MPFEE Merchant / CC Processing Fee. [id number] Office Visit, Est Pt., Level 3, delivered asynchronous. Modifiers: GQ * Sign off status: Completed true * Provider: Kareen PEREZ MD Date: 0 10/18/2023 Generated for Jenifer trevizo/Vero/Ednaransmitting on: 0 07/30/2024 10:19 AM EDT History and Physical Notes * HPI (History of Present Illness) Category Sub-Category Detail Notes Category Not es TeleHealth Complaint History 33 year-old female, not , presents with increased frequency of urination for a duration of 3 days. Medical History: No history of fall. Medications: lamoTRIgine 100 Take twice daily. Habits: No high risk sexual behavior. Allergies: Hydroxyzine: Hives PER PT: I'm 100% it's a UTI I just had one about a month ago and have the exact same symptoms Physical Examination Category Sub-Category Detail Notes Section Note s Asynchronous vi sit, unable to assess Consultation Request Notes Referral Date Referring Provider Referred Provider Not es 10/18/2023 JULIO LEDBETTER eval and treat
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
--- OUTSIDE RECORDS SUMMARY | 2024-07-30 09:20 | XMS_ITS | Clinical Summary ---
Author Organization [facility] Address [address] [place] [address] Phone Care Team Providers Care Guide Changer Name Role Phone Provider, None Primary Care Provider Unavailabl e Medications naproxen (NAPROSYN) 500 MG Tablet Take 1 Tablet by mouth 2 times daily as needed for Moderate or more severe pain. 20 Tablet 05/21/2022 Active Social History Tobacco Use Types Packs/Day Years Used Date Smoking Tobacco: Never Assessed Comments Unknown Sex and Gender Information Value Date Recorded Sex Assigned at Not on file Legal Sex Female 2:57 PM PAINTING MANAGER Gender Identity Not on file Sexual Orientation Not on file Last Filed Vital Signs Vital Sign Reading Time Taken Comments Blood Pressure 129/89 05/21/2022 3:08 PM PAINTING MANAGER Pulse 106 05/21/2022 3:04 PM PAINTING MANAGER Temperature 35.9 C (96.7 F) 05/21/2022 3:04 PM PAINTING MANAGER Respiratory Rate 18 05/21/2022 3:04 PM PAINTING MANAGER Oxygen Saturation 96% 05/21/2022 3:04 PM PAINTING MANAGER Inhaled Oxygen Concentration - - Weight 108.9 kg (240 lb) 05/21/2022 3:04 PM PAINTING MANAGER Height 152.4 cm (5') 05/21/2022 3:04 PM PAINTING MANAGER Body Mass Index 46.87 05/21/2022 3:04 PM PAINTING MANAGER Plan of Treatment Health Maintenance Due Date Last Done Comments Hepatitis C Virus (HCV) Screening 1990 Influenza Immunization (#1) 2023 03/16/2020 SARS-COV-2 Immunization ( - season) 2023 12/31/2020 Respiratory Syncytial Virus (RSV) Immunization (Adult) (1 - 1-dose 75+ series) 2065 Hepatitis B Immunization Completed 994, 05/05/1993, 02/02/1993 DTaP/Tdap/Td Immunization Discontinued 2020, 09/02/2018, 07/12/1994, Additional history exists TdaP Immunization Completed 07/29/2020, 09/02/2018 Meningococcal Immunization (ACWY) Aged Out No longer eligible based on patient's age to complete this topic Pneumococcal Immunization Combined Aged Out No longer eligible based on patient's age to complete this topic Rotavirus Immunization Aged Out No lo nger eligible based on patient's age to complete this topic Insurance MEDICAID AETNA [facility] Care Teams Guide Changer Relationship Specialty Start Date End Date Provider, None [place] PCP - General 05/21/22
--- OUTSIDE RECORDS SUMMARY | 2024-07-30 09:20 | XMS_ITS | Patient Health Record ---
Author Organization [facility] Address [address] [place] [address] Care Team Providers Care First Officer And Flight Instructor Name Role Phone [facility] Unavailable [phone] LEXI PEREZ Unavailable [phone] Allergies Allergen (clinical drug ingredient) Drug/Non Drug Allergy documented on EMR Reaction Allergy Type Onset Date Status hydroxyzine Hydroxyzine Unknown Drug Allergy Act kymberly Reason For Referral Reason eval and treat Diagnosis 1 Dysuria (R30.0) Referral Organization [facility] Referring Provider First Name JULIO Referring Provider Last Name ANATOLY Referring Provider Speciality Nurse Prac colin Referred Provider Specialty Urology Referral Priority Routine Referral Appointment Date 10/18/2023 Medications Medication SIG (Take, Route, Frequency, Duration) Notes Start Date End Date Status lamoTRIgine 100 MG 1 tablet Orally Once a day Active Sulfamethoxazole-Trimethopr im 800-160 MG 1 tablet Orally Twice a day for 5 days 10/18/2023 Active Social History Tobacco Use: Social History Observation Description Date Details (start date - stop date) Never Smoker NA - NA Tobacco Control (Standard) Question Answer Notes Tobacco use: Nonsmoker Vital Signs Height 60 in 10/18/2023 Patient Reported Normal Blood Presure Patient Reported Normal Temperature Weight 240 lbs 10/18/2023 Patient Reported Normal Blood Presure Patient Reported Normal Temperature BMI 46.87 kg/m2 10/18/2023 Patient Reported Normal Blood Presure Patient Reported Normal Temperature Encounters Encounter Location Date Provider Diagnosis [facility] [address] [place] [address] 10/18/2023 LEXI PEREZ Dysuria R30.0 Assessments Encounter Date Diagnosis (ICD Code) Assessment Notes Treatment Notes Treatment Clinical Notes Section Notes 10/18/2023 Dysuria (ICD-10 - R30.0) DUE TO RECENT UTI, FOLLOW UP WITH PCP OR UROLOGY A REFERRAL IS PROVIDEDTREATMENT PLAN: BACTRIM Patient presents with possible UTI symptoms without clear evidence of bloodstream infection. 1. Bactrim (Sulfamethoxazole-t rimethoprim) 800-160mg every 12 hours for 5 days (avoid taking antibiotics for longer than this unless symptoms dont improve). 2. If interested, we can send pyridum (phenazopyridine) for 2 days for urinary pain and bladder spasm relief. This will turn urine orange. Patient can also seed cone picker over the counter AZO which is [...] with your medicine. You participated in a [facility] Rx request, considered an asynchronous visit where you provide your symptoms and medical history, and a treatment plan is formulated based on your submission. A treatment plan and patient education were provided based on your submission. If symptoms persist or worsen, you should seek in-person care or call 911 immediately for further evaluation. 02/24/2024 AI TRIAGE SUGGESTED ASSESSMENTS: N39.0 - Urinary tract infection, site not specified N30.00 - Acute cystitis without hematuria N34.2 - Other urethritis N30.10 - Interstitial cystitis (chronic) without hematuria A64 - Unspecified sexually transmitted disease A74.9 - Chlamydial infection, unspecified - -- --- AI TRIAGE CLINICAL REASONING: Based on the patient's history and symptoms, the likely diagnosis is a Urinary Tract Infection (UTI) or Acute Cystitis. These conditions are supported by the patient's symptoms of burning on urination, increased frequency of urination, and urgency to pass urine. Other differentials such as Urethritis, Interstitial Cystitis, and Pyelonephritis are also considered but less likely based on the patient's presentation. Testing for Gonorrhea and Chlamydia may be considered based on the patient's risk factors. Further evaluation for Urinary Tract Stones may be warranted if symptoms persist or worsen. Plan Of Treatment Pending Test Test Name Order Date URINALYSIS, COMPLETE W/REFLEX TO CULTURE (3020) 10/18/2023 Insurance Providers Payer Name Payer Address Payer Phone Subscriber Number Group Number Insured Name Patient Relationship to Insured Coverage Start Date Coverage End Date A[employer]na Life Insurance [address] [address] (bad address) [place] [phone] [id number] Stefani Fall Self - patient is the insured Medical (General) History Surgical History Surgery Date(Month/Year) 05/24/2023 Hospitalization History Reason Date(Month/Year) SEE ABOVE
--- OUTSIDE RECORDS SUMMARY | 2024-07-30 09:20 | XMS_ITS ---
Author Organization [facility] Address [address] [place] [address] Care Team Providers Care Senior Credit Officer Name Role Phone [facility] Unavailable [phone] Allergies Allergen (clinical drug ingredient) Drug/Non Drug Allergy documented on EMR Reaction Allergy Type Onset Date Status hydroxyzine Hydroxyzine Unknown Drug Allergy Act kymberly REASON FOR VISIT Sexual Health / Urinary, Patient requesting service from promotional campaign competition Social History Tobacco Use: Social History Observation Description Date Details (start date - stop date) Never Smoker NA - NA Tobacco Control (Standard) Question Answer Notes Tobacco use: Nonsmoker Vital Signs Height 60 in 02/24/2024 Weight 230 lbs 02/24/2024 BMI 44.91 kg/m2 02/24/2024 Patient Reported Normal Bloo d PressurePatient Reported Normal Temperature Encounters Encounter Location Date Provider Diagnosis [facility] [address] [place] [address] 02/24/2024 [facility] Assessments Encounter Date Diagnosis (ICD Code) Assessment Notes Treatment Notes Treatment Clinical Notes Section Notes 02/24/2024 AI TRIAGE SUGGESTED ASSESSMENTS: N39.0 - [...] symptoms persist or worsen. Plan Of Treatment No Information Progress Notes * Rohan FALLaDOB:1990 (34 yo F)Acc No.[id number]:02/24/2024 IMPORT Patient: Stefani BURGESS Provider: Nieves [facility] :1990 A ge:34 Y S ex:Female Date:02/24/2024 Phone: Address:[address] [place], [place] [id number] Subjective: * Chief Complaints: * 1 . Sexual Health / Urinary. 2. Patient requesting service from documistic competition. * HPI: T [facility] Complaint History: 34 year-old female, not , presents with burning on urination for a duration of 2 days. The patient also complains of increased frequency of urination for a duration of 2 days. Habits: No high risk sexual behavior. * ROS: T he patient is also suffering from burning on urination (severity mild) and urgency to pass urine. The patient denies the following: loss of bladder control, fever, flank pain, chills, blood in urine, difficulty passing urine, abdominal pain, backache, redness of eye and excessive nighttime urination. * Medical History: * Hospitalization/Major Diagno stic Procedure: S EE ABOVE . * Social History: T obacco Use: T obacco Control (Standard) T obacco use: N onsmoker D rugs/Alcohol: D o you drink alcohol?: No. * Allergies: H ydroxyzine: Allergy. Objective: * Vitals: H t: 60 in, Wt:230lbs, BMI:44.91Index. Patient Reported Normal Blood Pressure Patient Reported Normal Temperature. Assessment: * Assessment: AI TRIAGE SUGGESTED ASSESSME NTS: N39.0 - Urinary tract infection, site not specified N30.00 - Acute cystitis without hematuria N34.2 - Other urethritis N30.10 - Interstitial cystitis (chronic) without hematuria A64 - Unspecified sexually transmitted disease A74.9 - Chlamydial infection, unspecified - - - --- AI TRIAGE CLINICAL REASONING: Based on [...] be warranted if symptoms persist or worsen. Plan: * Treatment: * Billing Information: * Visit Code: * Procedure Codes: * Electronic signature of [facility] on 07/30/2024 at 10:20 AM EDT Sign off status: Pending * Provider: Nieves HAILE [facility] Date: 04/25/2023 Generated for Jenifer trevizo/Vero/Marioitting on: 0 07/30/2024 10:20 AM EDT History and Physical Notes * HPI (History of Present Illness) Category Sub-Category Detail Notes Category Not es TeleHealth Complaint History 34 year-old female, not , presents with burning on urination for a duration of 2 days. The patient also complains of increased frequency of urination for a duration of 2 days. Habits: No high risk sexual behavior.
--- OUTSIDE RECORDS SUMMARY | 2024-07-30 09:20 | XMS_ITS | Referral Summary ---
Author Organization [facility] Address [address] [place] [address] Care Team Providers Care Ticket Counter Name Role Phone Unknown, Notinfile Primary Care Provider Unavail able Le Barker DO Unavailable [phone] Allergies Active Allergy Reactions Criticality Noted Date [...] counseled again today. Discussed limitations of our [facility]. Will plan for IOL for TOLAC around 38-39 weeks pending BPs but cannot guarantee provider production cost estimator will offer TOLAC if she comes in [...] 4. Was prescribed nifed 30 QD by [facility] ED, but self dc'd due to worsening [...] Intramuscular 03/16/2020 MMR 07/12/1994,04/02/1991 OPV 07/12/1994, 2,1990,03/26 [place]ones SARS-CoV-2 Monovalent Vaccination (12+ Yrs) PURPLE 12/31/2020 Tdap 09/02/2018,07/28/2012 Varicella 11/05/1997 Social History Tobacco Use Types Packs/Day Years Used Date Smoking Tobacco: Former Cigarettes - 2019 Smokeless Tobacco: Never Tobacco Cessation:Counseling Given: [...] often do you attend chur ch or judaism services? Never 05/24/2023 Do you belong to any clubs o r organizations such as anabaptism groups, unions, fraternal or athletic groups, or [...] staff should administer the PHQ-9) 0 05/24/2023 [facility] [place] of Occupat ional Health - Occupational Stress [...] on file Legal Sex Female 9:11 PM BOOSTER OPERATOR Gender Identity Female 09/01/2020 7:59 AM CDT Sexual Orientation Straight 11/17/2019 4: 35 PM CDT Occupation Industry Job Start Date Job End Date Not on file Not on file Not on file Not on file Last Filed Vital Signs Vital Sign Reading Time Taken Comments Blood Pressure 134/88 07/03/2023 10:59 AM CDT Pulse 88 05/27/2023 8:00 AM BOOSTER OPERATOR Temperature 36.8 C (98.2 F) 05/27/2023 8:00 AM BOOSTER OPERATOR Respiratory Rate 17 05/27/2023 12:0 0 AM BOOSTER OPERATOR Oxygen Saturation 98% 05/27/2023 12: 00 AM BOOSTER OPERATOR Inhaled Oxygen Concentration - - Weight 104.1 kg (229 lb 9.6 oz) 024 10:59 AM CDT Height 152.4 cm (5') 04/09/2023 11:29 AM BOOSTER OPERATOR Body Mass Index 44.84 04/09/2023 11:29 AM BOOSTER OPERATOR Plan of Treatment Not on file Insurance AETNA BETTER [facility] IDME AETNA BETTER [facility] MANAGED MEDICAID GENERIC RISK OTHER AETNA [place] Advance Directives For more information, please contact: [phone] * Full Code (Latest Code Status on [...] c ase of cardiopulmonary arrest Care Teams Ticket Counter Relationship Specialty Start Date End Date Unknown, Notinfile PCP - General 03/29/20 Le Barker DO [address] [place] [address] Consulting Physician Obstetrics and Gynecology 05/27/23
--- NOTE | 2024-07-30 09:46 | ED_ITS ---
HPI - Nausea/Vomiting/Diarrhea General Chief complaint: Headache Stated complaint: Headache/Vomiting/Diarrhea Source: patient and RN notes reviewed Mode of arrival: ambulatory Limitations: no limitations History of Present Illness HPI Narrative: 34-year-old female presents Express Care complaining of nausea, vomiting, diarrhea, headache for 2 days. Patient stated her symptoms started with nausea and vomiting followed by watery brown diarrhea. Patient states that she has a history of migraines and developed a migraine shortly after vomiting. She said her migraine starts within or the causes blurry vision that subsided rapidly. Since then the patient reports having headache that she feels a throbbing sensation to her bilateral temples. Patient has been taking Tylenol and ibuprofen around the clock with some relief. Patient says she is able to keep liquids down including water and sports drinks. Patient denies any abdominal pain, fevers, body aches, chills, bloody stools, or mucous stools. Patient no longer has a primary care provider who use to manage her hypertension and migraines. Related Data Home Medications ?Medication ?Instructions ?Recorded ?Confirmed ?Last Taken ?Type No Home Medications 07/30/24 07/30/24 Unknown History Allergies Allergy/AdvReac Type Severity Reaction Status Date / Time hydroxyzine (From Vistaril) Allergy Mild Hives Verified 07/30/24 09:30 Review of Systems Review of Systems: CONSTITUTIONAL: Denies fever, chills, or sweats. EYES: Denies visual changes, blurry vision, redness, or discharge. ENT: Denies rhinorrhea, congestion, sore throat, or otalgia. CARDIOVASCULAR: Denies chest pain, palpitations, or edema. RESPIRATORY: Denies cough or dyspnea. GASTROINTESTINAL: Denies abdominal pain. Positive for nausea, vomiting, and diarrhea. GENITOURINARY: Denies dysuria or hematuria. SKIN: Denies rash or itching. MUSCULOSKELETAL: Denies back pain, joint pain, or myalgia. NEUROLOGIC: Positive for headaches, negative for numbness, or weakness. PSYCHIATRIC: Denies anxiety or depression. All other systems reviewed are negative, except as documented in HPI. [facility] Past Medical History Medical History Ear infection Surgical History Surgical History Previous section Delivery by section Family History Family History Mother Diabetes mellitus Hypertension Father Diabetes mellitus Hypertension Hyperlipidemia Social History Social History Smoking status: Never smoker Alcohol intake: current Alcohol use details: social Substance use type: does not use Living arrangements: with family Gender identity (if verbalized by the patient): Female Comments At the time of my signature, I reviewed and agree with the nursing past medical, surgical, social, and family history. There is no relevant family history pertinent to the patient complaint. Exam Narrative: GENERAL: This is a well-nourished, well-developed adult, in no apparent distress. They are non ill-appearing, nontoxic appearing. HEAD: normocephalic, atraumatic. EYES: Sclera clear/white. Conjunctiva normal. Vision is grossly intact. Extraocular movements intact. Pupils PERRLA EARS: External ears normal. Hearing grossly intact. NOSE: External nose normal THROAT: Mucous membranes moist NECK: Normal range of motion CARDIOVASCULAR: Regular rate and rhythm without murmurs, gallops, or rubs. RESPIRATORY: Clear to auscultation. Breath sounds equal bilaterally. No wheezes, rales, or rhonchi. GASTROINTESTINAL: Abdomen soft, non-tender, nondistended. Bowel sounds are active. No hepato-splenomegaly, or palpable masses. No guarding. No rebound tenderness. SKIN: warm, Dry, intact with no suspicious lesions or rash, good texture and turgor. NEURO: awake, alert, and oriented to person, place and time. There were no obvious focal neurologic abnormalities. EXTREMITIES: No joint tenderness, effusion, or edema noted. Course Course Emergency Course: Portions of this record may have been created with voice recognition software Level of Care: Express Care Visit Vital Signs Vital signs: Vital Signs Temperature 97.5 F L 07/30/24 09:12 Pulse Rate 79 07/30/24 09:12 Respiratory Rate 16 07/30/24 09:12 Blood Pressure 154/107 H 07/30/24 09:12 Pulse Oximetry 100 07/30/24 09:12 Oxygen Delivery Room Air 07/30/24 09:12 Temperature 97.5 F L 07/30/24 09:12 Pulse Rate 70 07/30/24 09:50 Respiratory Rate 16 07/30/24 09:12 Blood Pressure 151/102 H 07/30/24 09:50 Pulse Oximetry 100 07/30/24 09:12 Oxygen Delivery Room Air 07/30/24 09:12 Reviewed MDM - Nausea/Vomiting/Diarrhea MDM Narrative Medical decision making narrative: Likely patient developed a viral gastroenteritis followed by a migraine headache. Headache sign lasted for 2 days. Will prescribe Zofran as needed for nausea. Patient is able to keep fluids down. Recommend close follow-up with PCP, primary care providers were given to patient.Discussed physical exam findings. Advised supportive measures and signs/symptoms to go to the ER. Pt is appropriate for outpt treatment and f/u. Patient is hypertensive today. She is no longer taking her hypertensive medications. Patient is having no vision changes, chest pain, dizziness or any other symptoms other than her headache. Her headache is consistent migraine headache that she has a history of. Patient agreed to establish a new primary care provider follow-up with her hypertension. Differential Diagnosis Differential diagnosis: Likely food poisoning, gastroenteritis and other (Mi graine headaches) Critical Care Time Critical Care Time Critical Care Time: No Discharge Plan Discharge Clinical Impression: Gastroenteritis Headache Qualifiers: Headache type: unspecified Headache chronicity pattern: acute headache Intractability: not intractable Qualified Code(s): R51.9 - Headache, unspecified Patient Disposition: Home Condition: Stable Instructions: Migraine Headache (ED), Gastroenteritis (ED) Additional Instructions: Continue take Tylenol and ibuprofen as directed for your headache. You may take 25 mg a Benadryl as directed as well for your headache. Do not drive or operate machinery while taking Benadryl because it can make you drowsy. It is likely that you have a he viral gastroenteritis that is normally self-limiting and resolve on its own next few days. Take Zofran as directed for nausea. You may take Pepto-Bismol as needed for uncontrollable diarrhea. Drink plenty of fluids and electrolytes including sports drinks. Please follow-up with her primary care provider for further evaluation and management of your migraines. Please go to the ER if he develops abdominal pain, worsening headache, Bloody stools, fevers, or any other concerns. Your blood pressure was elevated above 120/80 today at urgent care. This puts you above the threshold for follow-up. Please schedule a follow-up with your personal physician as soon as possible for further evaluation and treatment even blood pressures exceeding 120/80 may indicate pre-hypertension. Patient Language: Kyrgyz Prescriptions: New ondansetron 4 mg tablet,disintegrating 4 mg PO Q8H PRN (Reason: nausea and vomiting) 3 Days Qty: 10 0RF No Action No Home Medications Follow-up/Referrals: PHYSICIAN,REPORT DEVELOPER [Primary Care Provider] - Stand Alone Forms: Work/School Release IP Time of Disposition: 09:46
[2024-07-30 09:50] VITALS: BP 151/102; PULSE 70
== END 2024-07-30 09:50 | disposition home or self-care (01) ==
DX: K52.9 Noninfective gastroenteritis and colitis, unspecified (principal); R51.9 Headache, unspecified
CPT/HCPCS: 99213; G0463

== ENCOUNTER 2024-08-19 14:04 | Emergency (ER) | payer OTHER, SELFPAY ==
[2024-08-19 14:08] VITALS: BP 148/86; PULSE 95; RESP 20; TEMP 37.1; O2SAT 100
--- OUTSIDE RECORDS SUMMARY | 2024-08-19 14:16 | XMS_ITS | Referral Summary ---
Author Organization [facility] Address [address] [place] [address] Care Team Providers Care Drosser Name Role Phone Unknown, Notinfile Primary Care Provider Unavail able Le Barker DO Unavailable [phone] Allergies Active Allergy Reactions Criticality Noted Date [...] counseled again today. Discussed limitations of our [facility]. Will plan for IOL for TOLAC around 38-39 weeks pending BPs but cannot guarantee provider division operations manager will offer TOLAC if she comes in [...] [address] [facility] ED, but self dc'd due to [...] Intramuscular 03/16/2020 MMR 07/12/1994,04/02/1991 OPV 07/12/1994, 2,1990,03/26 [place] SARS-CoV-2 Monovalent Vaccination (12+ Yrs) PURPLE 12/31/2020 [...] often do you attend chur ch or latter-day services? Never 05/24/2023 Do you belong to any clubs o r organizations such as nondenominational groups, unions, fraternal or athletic groups, or [...] staff should administer the PHQ-9) 0 05/24/2023 [facility] [place] of Occupat ional Health - Occupational Stress [...] place to sleep or slept in a fdc (including now)? No 05/24/2023 Personal Safety Answer Date Recorded Have you ever been in or are you currently in a harmful physical or emotional relationship or is someone making you feel afraid or unsafe? Denies 05/24/2023 Comments No Sex and Gender Information Value Date Recorded Sex Assigned at Not on file Legal Sex Female 9:11 PM DENTAL SERVICES DIRECTOR Gender Identity Female 09/01/2020 7:59 AM CDT Sexual Orientation Straight 11/17/2019 4: 35 PM CDT Occupation Industry Job Start Date Job End Date Not on file Not on file Not on file Not on file Last Filed Vital Signs Vital Sign Reading Time Taken Comments Blood Pressure 134/88 07/03/2023 10:59 AM CDT Pulse 88 05/27/2023 8:00 AM DENTAL SERVICES DIRECTOR Temperature 36.8 C (98.2 F) 05/27/2023 8:00 AM DENTAL SERVICES DIRECTOR Respiratory Rate 17 05/27/2023 12:0 0 AM DENTAL SERVICES DIRECTOR Oxygen Saturation 98% 05/27/2023 12: 00 AM DENTAL SERVICES DIRECTOR Inhaled Oxygen Concentration - - Weight 104.1 kg (229 lb 9.6 oz) 024 10:59 AM CDT Height 152.4 cm (5') 04/09/2023 11:29 AM DENTAL SERVICES DIRECTOR Body Mass Index 44.84 04/09/2023 11:29 AM DENTAL SERVICES DIRECTOR Plan of Treatment Not on file Insurance AETNA [facility]TER [facility] IDNH AETNA [facility] MANAGED MEDICAID GENERIC RISK OTHER AETNA BETTER [place] Advance Directives For more information, please contact: [phone] * Full Code (Latest Code Status on [...] c ase of cardiopulmonary arrest Care Teams Drosser Relationship Specialty Start Date End Date Unknown, Notinfile PCP - General 03/29/20 Le Barker DO [address] [place] [address] Consulting Physician Obstetrics and Gynecology 05/27/23
--- OUTSIDE RECORDS SUMMARY | 2024-08-19 14:16 | XMS_ITS | Patient Health Record ---
Author Organization [facility] Address [address] [place] [address] Care Team Providers Care Filter Tender Name Role Phone [facility] Unavailable [phone] LEXI PEREZ Unavailable [phone] Allergies Allergen (clinical drug ingredient) Drug/Non Drug Allergy documented on EMR Reaction Allergy Type Onset Date Status hydroxyzine Hydroxyzine Unknown Drug Allergy Act kymberly Reason For Referral Reason eval and treat Diagnosis 1 Dysuria (R30.0) Referral Organization [facility] Referring Provider First Name [...] Temperature Encounters Encounter Location Date Provider Diagnosis [facility] [address] [place] [address] 10/18/2023 LEXI PEREZ Dysuria R30.0 Assessments Encounter [...] will turn urine orange. Patient can also draft roller picker over the counter AZO which is [...] End Date [employer] [address] [address] (bad address) [place] [address] [id number] Stefani Fall Self - patient is the insured Medical (General) History Surgical History Surgery Date(Month/Year) 05/24/2023 Hospitalization History Reason Date(Month/Year) SEE ABOVE
--- OUTSIDE RECORDS SUMMARY | 2024-08-19 14:16 | XMS_ITS | Clinical Summary ---
Author Organization [facility] Address [address] [place] [address] Care Team Providers Care Card Cutter Name Role Phone Unknown, Notinfile Primary Care Provider Unavail able Le Barker DO Unavailable [phone] Allergies Active Allergy Reactions Criticality Noted Date [...] counseled again today. Discussed limitations of our [facility]. Will plan for IOL for TOLAC around 38-39 weeks pending BPs but cannot guarantee provider validation specialist will offer TOLAC if she comes in [...] 4. Was prescribed nifed 30 QD by [facility] ED, but self dc'd due to [...] Intramuscular 03/16/2020 MMR 07/12/1994,04/02/1991 OPV 07/12/1994, 2,1990,03/26 [place] SARS-CoV-2 Monovalent Vaccination (12+ Yrs) PURPLE 12/31/2020 [...] often do you attend chur ch or adventist services? Never 05/24/2023 Do you belong to any clubs o r organizations such as buddhist groups, unions, fraternal or athletic groups, or [...] staff should administer the PHQ-9) 0 05/24/2023 [facility] [place] of Occupat ional Health - Occupational Stress [...] place to sleep or slept in a assisted (including now)? No 05/24/2023 Personal Safety Answer Date Recorded Have you ever been in or are you currently in a harmful physical or emotional relationship or is someone making you feel afraid or unsafe? Denies 05/24/2023 Comments No Sex and Gender Information Value Date Recorded Sex Assigned at Not on file Legal Sex Female 9:11 PM REAL ESTATE CONSULTANT Gender Identity Female 09/01/2020 7:59 AM CDT [...] al N Livin g Complications:Pre eclampsia Delivery Location:[facility] Comments:induced for p reeclampsia 2013 SAB 10w 0d SAB 2017 Term 41w 0d 0h 13m 0h 09m/0h 04m 2.57 kg (5 lb 10.7 oz) F Vag-S pont Epidur al N Livin g 6 8 FALL ,BABY GIRL STEFANI Cintronra kee sandoval MD Complications:Abruptio Place nta, Intolerance Delivery Location:[facility] 2020 Term 39w 1d 0h 01m 0h [...] AM CDT Pulse 88 05/27/2023 8:00 AM REAL ESTATE CONSULTANT Temperature 36.8 C (98.2 F) 05/27/2023 8:00 AM REAL ESTATE CONSULTANT Respiratory Rate 17 05/27/2023 12:0 0 AM REAL ESTATE CONSULTANT Oxygen Saturation 98% 05/27/2023 12: 00 AM REAL ESTATE CONSULTANT Inhaled Oxygen Concentration - - Weight 104.1 kg (229 lb 9.6 oz) 024 10:59 AM CDT Height 152.4 cm (5') 04/09/2023 11:29 AM REAL ESTATE CONSULTANT Body Mass Index 44.84 04/09/2023 11:29 AM REAL ESTATE CONSULTANT Plan of Treatment Health Maintenance Due Date [...] age to complete this topic Insurance AETNA [facility] A[place] Member Subscriber Plan / Payer (Ef fective 2020-Present) Name:Stefani Fall Relation to Subscriber:Self Name:Stefani Fall Payer ID:[id number] (NAIC) Group ID:Not on file Type:MEDICAID RISK OTHER Address: [facility] [address] [place] [id number] MANAGED MEDICAID GENERIC RISK OTHER A[place] [place]TER [place] Advance Directives For more information, please contact: [phone] * Full Code (Latest Code Status on [...] c ase of cardiopulmonary arrest Care Teams Card Cutter Relationship Specialty Start Date End Date Unknown, Notinfile PCP - General 03/29/20 Le Barker DO [address] [place] [address] Consulting Physician Obstetrics and Gynecology 05/27/23
--- OUTSIDE RECORDS SUMMARY | 2024-08-19 14:16 | XMS_ITS | Clinical Summary ---
Author Organization [facility] Address [address] [place] [address] Phone Care Team Providers Care Outcome Analyst Name Role Phone Provider, None Primary Care [...] on file Legal Sex Female 2:57 PM WOOD HEEL CEMENTER Gender Identity Not on file Sexual Orientation Not on file Last Filed Vital Signs Vital Sign Reading Time Taken Comments Blood Pressure 129/89 05/21/2022 3:08 PM WOOD HEEL CEMENTER Pulse 106 05/21/2022 3:04 PM WOOD HEEL CEMENTER Temperature 35.9 C (96.7 F) 05/21/2022 3:04 PM WOOD HEEL CEMENTER Respiratory Rate 18 05/21/2022 3:04 PM WOOD HEEL CEMENTER Oxygen Saturation 96% 05/21/2022 3:04 PM WOOD HEEL CEMENTER Inhaled Oxygen Concentration - - Weight 108.9 kg (240 lb) 05/21/2022 3:04 PM WOOD HEEL CEMENTER Height 152.4 cm (5') 05/21/2022 3:04 PM WOOD HEEL CEMENTER Body Mass Index 46.87 05/21/2022 3:04 PM WOOD HEEL CEMENTER Plan of Treatment Health Maintenance Due Date [...] to complete this topic Insurance MEDICAID AETNA [facility] Care Teams Outcome Analyst Relationship Specialty Start Date End Date Provider, None [place] PCP - General 05/21/22
--- OUTSIDE RECORDS SUMMARY | 2024-08-19 14:16 | XMS_ITS ---
Author Organization [facility] Address [address] [address] Care Team Providers Care Cane Weigher Helper Name Role Phone [facility] Unavailable [phone] Allergies Allergen (clinical drug ingredient) Drug/Non Drug [...] Encounters Encounter Location Date Provider Diagnosis [facility] [address] [place] [address] 02/24/2024 [facility] Assessments Encounter Date [...] Notes * Rohan FALLaDOB:1990 (34 yo F)Acc No.[id number]:02/24/2024 IMPORT Patient: Stefani BURGESS Provider: Nieves HAILE [facility]ACT[facility] HELIX :1990 A ge:34 Y S ex:Female Date:02/24/2024 Phone: Address:[address] [place], [place] [id number] Subjective: * Chief Complaints: * 1 . Sexual Health / Urinary. 2. Patient requesting service from [employer]. * HPI: T [facility] Complaint History: [...] * Procedure Codes: * Electronic signature of [facility] on 08/19/2024 at 03:16 PM EDT Sign off status: Pending * Provider: Nieves HAILE [facility] Date: 04/25/2023 Generated for Jenifer trevizo/Vero/Marioitting on: 0 08/19/2024 03:16 PM EDT History and Physical Notes * HPI [...]
--- OUTSIDE RECORDS SUMMARY | 2024-08-19 14:16 | XMS_ITS | Clinical Summary ---
Author Organization [facility] Socialtext Address [address] [place] [address] Care Team Providers Care Enrollment Management Coordinator Name Role Phone Unavailable Primary Care Provider Unavailabl e Source Comments [facility] [employer]text,non-owned Affiliates and Associated Physician Practices is amultiple site organization consisting of ambulatory clinics and hospital sitesin [place] and [place]. This disclosure is being madepursuant to the Care Everywhere program and may not contain all information available regarding this patient. Last updated 17.[facility] [employer] Allergies Active Allergy Reactions Criticality Noted Date [...] 4.9% Assessment & Plan (05/04/2020 2:37 PM DIRECTOR ELECTRICAL ENGINEERING): Obese women have higher rates of spontaneous [...] , limited weight gain is recommended. The [facility] of [employer] recommends a total weight gain [...] 4. Was prescribed nifed 30 QD by [facility] ED, but self dc'd due to [...] infrequently Assessment & Plan (05/04/2020 3:23 PM DIRECTOR ELECTRICAL ENGINEERING): Stefani reports receiving a diagnosis of hypertension [...] prevention of preeclampsia in at risk women (Saturnino DSR, 2008). There is no significant risk [...] given today 1. instructed to probably notify commercial baking teacher if blood pressure greater than or equal [...] 11/27/2022 Assessment & Plan (05/04/2020 3:23 PM DIRECTOR ELECTRICAL ENGINEERING): Concern for congenital cardiac anomaly in the sister of the father of the baby Maternal Medicine recommendations: 1. screening echocardiogram between 22- 28 weeks History of delivery 05/02/2020 11/27/2022 Overview (05/04/2020): IOL related to preeclampsia at 35 weeks Anxiety and depression 05/02/202011/27 Overview (05/02/2020): Per record, treating with sertraline Assessment & Plan (05/04/2020 3:07 PM DIRECTOR ELECTRICAL ENGINEERING): Sertraline [Zoloft]: [place] FDA category not assigned. [...] 1. reassess mood at visits 2. notify ingredient specialist of sertraline use if continued into the 3rd trimester 1. [place] would benefit from increased supervision in the 1st 48 hr of life 3. at risk for recurrent depression Hx of preeclampsia, prior pr egnancy, currently 05/02/2020 11/27/2022 Overview (05/02/2020): On LD ASA, 162mg. Assessment & Plan (05/04/2020 2:37 PM DIRECTOR ELECTRICAL ENGINEERING): The risk of recurrence of preeclampsia in a subsequent has been reported to be up to 14 percent. Maternal Medicine recommendations: 1. continue aspirin for preeclampsia risk reduction for the remainder of the GERD (gastroesophageal reflux disease) 05/02/2020 11/27/2022 Supervision of normal first 10/29/2017 11/27/2022 Migraine 11/27/2022 Assessment & Plan (05/04/2020 3:08 PM DIRECTOR ELECTRICAL ENGINEERING): Magnesium oxide prescribed for headache prevention Immunizations [...] and heating? Not hard at all 11/27/2022 [facility]at ional [facility] - Occupational Stress [...] place to sleep or slept in a long term (including now)? No 11/27/2022 [place] Depression Scale Answer Date Recorded [place] Depression Scale Total 19 11/27/2022 The thought of harming myself has occurred to me . 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 Specimen Adequacy Comment 023 9:07 PM CDT [facility] ([facility]) Comment: Satisfactory for evaluation. Endocervical and/or squamous metaplastic cells (endocervical component) are present. Performed by Comment 11/29/2022 9:07 PM CDT [facility] ([facility]) Comment:Jose De Jesus Steiner, Cytot echnologist (ASCP) Comment . 11/29/2022 9:07 PM CDT [facility] ([facility]) Note Comment 11/29/2022 9:07 PM CDT [facility] ([facility]) Comment: The Pap smear is a screening test designed to aid in the detection of premalignant and malignant conditions of the uterine cervix. It is not a diagnostic procedure and should not be used as the sole means of detecting cervical cancer. Both false-positive and false-negative reports do occur. IGLBP CPT Code Automation Comment 11/29/2022 9:07 PM CDT [facility] ([facility]) Comment: This liquid based ThinPrep(R) pap test was screened with the use of an image guided system. Human papillomavirus Aptima Negative Negative 11/29/2022 9:07 PM CDT [facility] ([facility]) Comment: This nucleic acid amplification test detects fourteen high-risk HPV types (16,18,31,33,35,39,45,51,52,56,58,59,66,68) without differentiation. Pathology/Cytolo gy ENTIRE VAGINA / Unknown Collection / Unknown 11/27/2022 9:55 AM CDT 11/27/2022 10:30 AM CDT Narrative [facility] ([facility]) - 11/29/2022 9:07 PM CDT Performed at: - [address] [id number] Management Intern: Sharon Zamora MD, Phone: [phone] Performed at: 02 - [address] [id number] Management Intern: Sharon Zamora MD, Phone: [phone] Specimen Comment: No. of containers..01 ThinPrep Vial Brittany Jerry MD LAB - PATHOLOGY/CYTOLOGY ORDERAB LES Final Result [facility] ([facility]) [address] [place] [address] * HIV-1 HIV-2 ANTIBODY + HIV P24 AG PANEL (11/27/2022 9:55 AM CDT) HIV1/2 Ab + P24 Ag Non Reactive Non Reactive 11/27/2022 11:24 AM CDT [facility] Blood BLOOD SPECIMEN / Unknown Venipuncture / Unknown 11/27/2022 9:55 AM CDT 11/27/2022 10:21 AM CDT Narrative [facility] - 11/27/2022 11:24 AM CDT No Laboratory evidence of HIV infection. Brittany Jerry MD LAB - CHEMISTRY ORDERABLES Final Result Performing Organization Address City/[facility]/ZIP Co de Phone Number [facility] [address] [place] [address] * HEPATITIS C ANTIBODY (11/27/2022 9:55 AM CDT) [facility] Signature HCV Antibody Screen Non Reactive Non Reactive 11/27/2022 11:22 AM CDT [facility] Blood BLOOD SPECIMEN / Unknown Venipuncture / Unknown 11/27/2022 9:55 AM CDT 11/27/2022 10:21 AM CDT Narrative [facility] - 11/27/2022 11:22 AM CDT Non Reactive - Antibodies to Hepatitis C virus (HCV) were not detected, result does not exclude early acute HCV infection. Brittany Jerry MD LAB - CHEMISTRY ORDERABLES Final Result Performing Organization Address [facility] Co de Phone Number [facility] [address] [place] [address] from Last 3 Months or Most Recently Relevant to Health Maintenance Insurance [place] MEDICAID - [facility] [employer] MEDICAID [facility] MEDICAID - [place] Advance Directives * Full Code (Latest Code Status on File) Date Activated Date Inactivated Comments 10/29/2017 9:09 AM 10/31/2017 8:03 PM
--- NOTE | 2024-08-19 14:26 | ED_ITS ---
HPI - URI/Sore Throat General Chief Complaint: Upper Respiratory Infection Stated Complaint: Cough/Runny Nose/Congestion Source: patient and RN notes reviewed Mode of arrival: ambulatory Limitations: no limitations History of Present Illness HPI Narrative: 34 y/o female presented for c/o nasal congestion, drainage, and cough. Onset 2 days. denies sob, wheezing, n/v/d/f/c. Took Sudafed. elicited complaint: cough Related Data Allergies Allergy/AdvReac Type Severity Reaction Status Date / Time hydroxyzine (From Vistaril) Allergy Mild Hives Verified 08/19/24 14:06 Review of Systems Review of Systems: per HPI [facility] Past Medical History Medical History Ear infection Surgical History Surgical History Previous section Delivery by section Family History Family History Mother Diabetes mellitus Hypertension Father Diabetes mellitus Hypertension Hyperlipidemia Social History Social History Smoking status: Never smoker Alcohol intake: current Alcohol use details: social Substance use type: does not use Living arrangements: with family Gender identity (if verbalized by the patient): Female Exam Narrative: GENERAL: well-appearing EYES: conjunctivae clear ENT: Mucous membranes moist. nasal congestion and postnasal drainage noted TMs pearly hernandes with dull light reflex bilaterally; no tragal tenderness. Oropharynx not erythematous without lesions or exudate, no drooling, no hoarseness, no trismus, uvula midline. NECK: Supple. No lymphadenopathy CHEST: Clear to auscultation, breath sounds equal. HEART: Regular rate and rhythm. No murmur heard. SKIN: Warm, dry, no rash. NEURO: Alert and oriented x3. PSYCH: Normal mood and affect Course Course Emergency Course: Patient is aware of diagnosis, understands and agrees to treatment plan. Anticipatory guidance given. Patient agrees to follow-up as directed and is aware of reasons to seek care at the emergency department. Portions of this record may have been created with voice recognition software Level of Care: Express Care Visit Vital Signs Vital signs: Vital Signs Temperature 98.7 F 08/19/24 14:08 Pulse Rate 95 08/19/24 14:08 Respiratory Rate 20 08/19/24 14:08 Blood Pressure 148/86 H 08/19/24 14:08 Pulse Oximetry 100 08/19/24 14:08 Oxygen Delivery Room Air 08/19/24 14:08 Temperature 98.7 F 08/19/24 14:08 Pulse Rate 95 08/19/24 14:08 Respiratory Rate 20 08/19/24 14:08 Blood Pressure 148/86 H 08/19/24 14:08 Pulse Oximetry 100 08/19/24 14:08 Oxygen Delivery Room Air 08/19/24 14:08 reviewed MDM - URI/Sore Throat MDM Narrative Medical decision making narrative: Discussed physical exam findings, negative flu COVID. Advised supportive measures and signs/symptoms to go to the ER. Pt is appropriate for outpt treatment and f/u. Differential Diagnosis Differential diagnosis: Likely upper respiratory infection, sinusitis and viral infection Discharge Plan Discharge Clinical Impression: Upper respiratory infection Patient Disposition: Home Condition: Stable Instructions: Antibiotic Form, Upper Respiratory Infection (ED) Additional Instructions: Your blood pressure reading was elevated (above 120/80) please follow-up with your primary care provider for further evaluation and management. Some medications such as Sudafed can increase your blood pressure - avoid using. If you develop worsening Blood Pressure symptoms, (headache, vision changes, dizziness, vomiting, chest pain, etc) go to the ER. Call 911. Recommendations: Flonase spray and Zyrtec (or Claritin/Jennifer) over the counter Cough syrup may cause drowsiness; avoid driving or take it at night time. Tylenol 1000mg every 8 hours as needed for pain Symptomatic treatment includes: rest, fluids, and increase humidity of the air at home. Follow up with your primary care provider in 1 week. Go to the ER for worsening symptoms or concerns. Patient Language: Irish Prescriptions: New benzonatate 200 mg capsule 200 mg PO TID PRN (Reason: cough) Qty: 20 0RF prednisone 20 mg tablet 40 mg PO DAILY 4 Days Qty: 8 0RF Follow-up/Referrals: PHYSICIAN,NEWSPAPER PEDDLER [Primary Care Provider] - Stand Alone Forms: Work/School Release IP Time of Disposition: 14:29
[2024-08-19 14:34] LABS: EDCOVIDSCREEN Negative (Negative); EDINFLUASCREEN Negative (Negative); EDINFLUBSCREEN Negative (Negative)
== END 2024-08-19 14:31 | disposition home or self-care (01) ==
PROVIDERS: Emergency Provider Nurse Practitioner Family
DX: J06.9 Acute upper respiratory infection, unspecified (principal); Z20.822 Contact with and (suspected) exposure to COVID-19
CPT/HCPCS: 87426; 87804; 99213; G0463